=== PATIENT | male | born 1995 | race Hispanic/Latino ===

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

== ENCOUNTER 2022-10-10 15:08 | Emergency (ER) | payer MEDICAID, OTHER ==
[2022-10-10] MEDS ORDERED: XYLOCAINE 1% HCL 20 ML MDV IJ ONE (15:14)
[2022-10-10] MEDS ORDERED: MORPHINE SULFATE 2 MG INJ IM ONE (15:14)
[2022-10-10] MEDS ORDERED: MORPHINE SULFATE 2 MG INJ ONE (15:16)
[2022-10-10] MEDS ORDERED: XYLOCAINE 1% HCL 20 ML MDV ONE (15:17)
[2022-10-10] MEDS ORDERED: BACIGUENT PACKET TP ONE (15:30)
[2022-10-10] MEDS ORDERED: BACIGUENT PACKET ONE (15:31)
--- NOTE | 2022-10-10 15:51 | ERPHSYRPT ---
- History of Present Illness Time Seen by Provider: 10/10/22 15:46 Source: patient Exam Limitations: no limitations Patient Subjective Stated Complaint: Hand/finger injury Triage Nursing Assessment: Patient ambulated back to ED and transferred self to bed. Patient A+O X.3 Patient's skin pink, warm and dry. Patient was at work when he unhooking a trailer that was hooked to a full water tank when patient unhooked trailer the chain smashed his left hand 2nd digit inbetween the hitch and the frame of truck. Patient complains of pain to left hand 2nd digit 8/10. Left hand 2nd digit noted to be swollen. Patient has 1 cm laceration noted to left hand 2nd digit. Physician History: Patient is a 27-year-old male who presents with a complaint of injury to the left hand in particular to the left hand over the area of the second MPJ joint and index finger. He was on hitching a trailer with a heavy tank on the trailer and his hand got caught between the trailer hitch and the chain causing a injury to the left index finger with a laceration overlying the dorsum of the second metatarsophalangeal joint. Neurovascular tendon are intact the laceration measures approximately 2 cm in length. No other injury or complaint of pain. Occurred: just prior to arrival Method of Injury: direct blow Quality: throbbing Severity of Pain-Max: moderate Severity of Pain-Current: moderate Extremities Pain Location: 2nd finger: right (Swelling noted along with the presence of a 2 cm laceration over the dorsum of the second metacarpal phalangeal joint) Modifying Factors: Improves With: movement Associated Symptoms: none Allergies/Adverse Reactions: No Known Drug Allergies Allergy (Verified 10/10/22 15:11) Home Medications: No Reportable Medications [No Reported Medications] 10/10/22 [History] Hx Tetanus, Diphtheria Vaccination/Date Given: Yes Hx Influenza Vaccination/Date Given: No Hx Pneumococcal Vaccination/Date Given: No Immunizations Up to Date: Yes Travel Risk - International Travel Have you traveled outside of the country in past 3 weeks: No - Coronavirus Screening Are you exhibiting any of the following symptoms?: No Close contact with a COVID-19 positive Pt in past 14-21 Days: No - Vaccine Status Have you recieved a Covid-19 vaccination: No - Review of Systems Constitutional: No Fever, No Chills Eyes: No Symptoms Ears, Nose, & Throat: No Symptoms Respiratory: No Cough, No Dyspnea Cardiac: No Chest Pain, No Edema, No Syncope Abdominal/Gastrointestinal: No Abdominal Pain, No Nausea, No Vomiting, No Diarrhea Genitourinary Symptoms: No Dysuria Musculoskeletal: Joint Pain, Joint Swelling (Second MPJ), No Back Pain, No Neck Pain Skin: Other (Laceration), No Rash Neurological: No Dizziness, No Focal Weakness, No Sensory Changes Psychological: No Symptoms Endocrine: No Symptoms All Other Systems: Reviewed and Negative - Past Medical History Pertinent Past Medical History: No Neurological History: No Pertinent History ENT History: No Pertinent History Cardiac History: No Pertinent History Respiratory History: No Pertinent History Endocrine Medical History: No Pertinent History Musculoskeletal History: No Pertinent History GI Medical History: No Pertinent History History: No Pertinent History Psycho-Social History: No Pertinent History Male Reproductive Disorders: No Pertinent History - Past Surgical History Past Surgical History: No Neuro Surgical History: No Pertinent History Cardiac: No Pertinent History Respiratory: No Pertinent History Gastrointestinal: No Pertinent History Genitourinary: No Pertinent History Musculoskeletal: No Pertinent History Male Surgical History: No Pertinent History - Social History Smoking Status: Current some day smoker How long have you smoked: 1/3 Exposure to second hand smoke: Yes Drug Use: none Patient Lives Alone: No - Nursing Vital Signs Nursing Vital Signs: Initial Vital Signs Temperature 96.6 F 10/10/22 15:13 Pulse Rate 109 H 10/10/22 15:13 Respiratory Rate 20 10/10/22 15:13 Blood Pressure 112/42 10/10/22 15:13 O2 Sat by Pulse Oximetry 99 10/10/22 15:13 Pain Scale Pain Intensity 8 - Physical Exam General Appearance: moderate distress, alert Eyes, Ears, Nose, Throat Exam: moist mucous membranes Neck Exam: non-tender, supple Cardiovascular/Respiratory Exam: chest non-tender, normal breath sounds, regular rate/rhythm, no respiratory distress Abdominal Exam: non-tender, No guarding Back Exam: normal inspection, No vertebral tenderness Shoulder Exam: normal inspection, non-tender, no evidence of injury Elbow/Forearm Exam: normal inspection, non-tender, no evidence of injury Wrist Exam: normal inspection, non-tender, no evidence of injury Hand Exam: bone tenderness (Tenderness over the dorsum of the left second MPJ), laceration (2 cm laceration), swelling (Swelling over the second MPJ on the left) Neuro/Tendon Exam: normal sensation, normal motor functions Mental Status Exam: alert, oriented x 3, cooperative Skin Exam: normal color, warm, dry SpO2: 99 Procedures - Splinting Location of Splint: Left, Hand Type of Splint: Foam Pad Finger Splint - Laceration/Wound Repair Injury to the second metatarsophalangeal joint and index finger of the left hand Time of Procedure: 15:51 Wound Location: Left, hand Wound Length (cm): 2 Wound's Depth, Shape: superficial, linear Wound Explored: clean Irrigated: Yes Hibiclens Prep: Yes Anesthesia: 1% Lidocaine Volume Anesthetic (ccs): 3 Wound Debrided: minimal Wound Repaired With: sutures Suture Size/Type: 5-0 Number of Sutures: 3 Layer Closure?: No Sterile Dressing Applied?: Yes Splint Applied?: Yes - Course Nursing assessment & vital signs reviewed: Yes - Radiology Exams Left Hand X-ray Interpretation: Interpreted by me, Negative Ordered Tests: Active Orders 24 hr Category Date Time Status Splint STAT Care 10/10/22 15:42 Active Wound Care STAT Care 10/10/22 15:30 Active HAND (MINIMUM 3 VIEWS) Stat Exams 10/10/22 15:15 Taken Medication Summary Discontinued Medications Generic Name Dose Route Start Last Admin Trade Name Soila PRN Reason Stop Dose Admin Bacitracin Zinc 0.9 each 10/10/22 15:30 10/10/22 15:32 Bacitracin Packet 1 Each Pckt TP 10/10/22 15:31 0.9 each STAT ONE Administration Bacitracin Zinc Confirm 10/10/22 15:31 Bacitracin Packet 1 Each Pckt Administered 10/10/22 15:32 Dose 1 each .ROUTE .STK-MED ONE Lidocaine HCl 10 ml 10/10/22 15:14 10/10/22 15:18 Lidocaine Hcl 1% 20 Ml Mdv 20 Ml Ml IJ 10/10/22 15:15 10 ml STAT ONE Administration Lidocaine HCl Confirm 10/10/22 15:17 Lidocaine Hcl 1% 20 Ml Mdv 20 Ml Ml Administered 10/10/22 15:18 Dose 10 ml .ROUTE .STK-MED ONE Morphine Sulfate 2 mg 10/10/22 15:14 10/10/22 15:18 Morphine Sulfate 2 Mg/Ml Inj IM 10/10/22 15:15 2 mg STAT ONE Administration Morphine Sulfate Confirm 10/10/22 15:16 Morphine Sulfate 2 Mg/Ml Inj Administered 10/10/22 15:17 Dose 2 mg .ROUTE .STK-MED ONE - Progress Progress: improved Medical Desision Making - Diagnostic Testing Radiological Interpretation: Interpreted by me - Risk of complications Minimal Risk: Minimal risk of morbidity - Departure Departure Disposition: Home Clinical Impression: Laceration of left hand Condition: Stable Critical Care Time: No Referrals: JULIAN SCHREIBER [Primary Care Provider] - Follow up/PCP as directed Instructions: Laceration Repair With Stitches (DC) Additional Instructions: Patient was instructed to have the sutures removed in 10 days to keep the wound clean and dry.
[2022-10-10 16:01] VITALS: BP 121/60; PULSE 80; O2SAT 97
--- NOTE | 2022-10-10 16:22 | XRAY ---
Indication: Index finger laceration. Comparison: None 3 portable views left hand demonstrates proximal 2nd finger soft tissue swelling. No other bony, articular, or soft tissue abnormalities.
== END 2022-10-10 16:04 | disposition home or self-care (01) ==
LOC: ED 15:08
DX: S61.211A Laceration without foreign body of left index finger without damage to nail, initial encounter (principal); W31.89XA Contact with other specified machinery, initial encounter; Z20.828 Contact with and (suspected) exposure to other viral communicable diseases
CPT/HCPCS: 12001; 73130; 96372; 99283; J2270; A9270-GY

== ENCOUNTER 2023-10-05 23:55 | Emergency (ER) | payer OTHER ==
--- NOTE | 2023-10-06 00:14 | ERPHSYRPT ---
- History of Present Illness Time Seen by Provider: 10/06/23 00:14 Source: patient Exam Limitations: no limitations Allergies/Adverse Reactions: No Known Drug Allergies Allergy (Verified 10/10/22 15:11) Home Medications: No Reportable Medications [No Reported Medications] 10/10/22 [History] Hx Tetanus, Diphtheria Vaccination/Date Given: Yes Hx Influenza Vaccination/Date Given: No Hx Pneumococcal Vaccination/Date Given: No - Past Medical History Pertinent Past Medical History: No Neurological History: No Pertinent History ENT History: No Pertinent History Cardiac History: No Pertinent History Respiratory History: No Pertinent History Endocrine Medical History: No Pertinent History Musculoskeletal History: No Pertinent History GI Medical History: No Pertinent History History: No Pertinent History Psycho-Social History: No Pertinent History Male Reproductive Disorders: No Pertinent History - Past Surgical History Past Surgical History: No Neuro Surgical History: No Pertinent History Cardiac: No Pertinent History Respiratory: No Pertinent History Gastrointestinal: No Pertinent History Genitourinary: No Pertinent History Musculoskeletal: No Pertinent History Male Surgical History: No Pertinent History - Social History Smoking Status: Current some day smoker How long have you smoked: 1/3 Exposure to second hand smoke: Yes Drug Use: none Patient Lives Alone: No - Departure Referrals: ALANNAH MOONEY MD [Primary Care Provider] - Follow up/PCP as directed
== END 2023-10-06 01:00 | disposition left against medical advice (07) ==
LOC: ED 23:55
DX: Z53.21 Procedure and treatment not carried out due to patient leaving prior to being seen by health care provider (principal)